=== PATIENT | male | born 1995 | race African-American/Black ===

== ENCOUNTER → 2023-12-19 | Emergency (ER) | payer OTHER ==
[~2023-12-19] VITALS: Ht 188 cm; Wt 81.6 kg
[~2023-12-19] MED LIST: KETO10TA2 PO; KETOROLAC TROMETHAMINE 60 MG VIAL IM ONE; NORFLEX100MG PO; ORPHENADRINE CITRATE 30 MG/ML AMPUL IM ONE
== END | disposition home or self-care (01) ==
LOC: ER 09:55
DX: M62.830 Muscle spasm of back (principal); Z91.018 Allergy to other foods

== ENCOUNTER 2024-09-28 14:49 | Emergency (ER) | payer OTHER ==
[~2024-09-28] VITALS: Ht 182.9 cm; Wt 83.9 kg
[~2024-09-28 14:49] MED LIST changes: -KETOROLAC TROMETHAMINE 60 MG VIAL IM ONE; -ORPHENADRINE CITRATE 30 MG/ML AMPUL IM ONE
[2024-09-28 15:30] VITALS: BP 106/68; O2SAT 98
[2024-09-28] MEDS ORDERED: KETOROLAC TROMETHAMINE 30 MG VIAL IM ONE (16:15)
[2024-09-28] MEDS ORDERED: ORPHENADRINE CITRATE 30 MG/ML AMPUL IM ONE (16:15)
[2024-09-28] MEDS ORDERED: KETOROLAC TROMETHAMINE 30 MG VIAL ONE (16:24)
[2024-09-28] MEDS ORDERED: ORPHENADRINE CITRATE 30 MG/ML AMPUL ONE (16:25)
[2024-09-28] MEDS ORDERED: DICLOFENAC SODI50 MG PO (17:44)
[2024-09-28] MEDS ORDERED: NORFLEX100MG PO (17:44)
== END 2024-09-28 19:31 ==
LOC: ER 15:01
DX: M62.830 Muscle spasm of back (principal); Z91.013 Allergy to seafood; M54.2 Cervicalgia; M54.50 Low back pain, unspecified